=== PATIENT | male | born 1975 | race Two or more races ===

== ENCOUNTER 2018-06-09 02:27 | Emergency (ER) | payer OTHER ==
[~2018-06-09] VITALS: Ht 182.9 cm; Wt 96.6 kg
[2018-06-09 02:38] VITALS: BP 128/89
[2018-06-09] MEDS ORDERED: ACETAMINOPHEN ES 500 MG TABLET PO ONE (03:00)
--- NOTE | 2018-06-09 03:06 | NUR ---
RADIOLOGY AT BEDSIDE FOR XRAY
[2018-06-09] MEDS ORDERED: ACETAMINOPHEN ES 500 MG TABLET ONE (03:07)
== END 2018-06-09 03:28 ==
LOC: ER 02:36
DX: S46.812A Strain of other muscles, fascia and tendons at shoulder and upper arm level, left arm, initial encounter (principal); W22.8XXA Striking against or struck by other objects, initial encounter; Y93.89 Activity, other specified; Y92.89 Other specified places as the place of occurrence of the external cause; Y99.8 Other external cause status
CPT/HCPCS: 73030; 99283; A4606